=== PATIENT | male | born 1990 | race Caucasian/White ===

== ENCOUNTER 2017-10-01 08:49 | Emergency (ER) | payer BC ==
[2017-10-01] MEDS ORDERED: methylPREDNISolone Sodium Succinate 125 MG/2 ML SDV ONE (09:31)
[2017-10-01] MEDS ORDERED: Ketorolac 30 MG/ML SDV ONE (09:31)
[2017-10-01] MEDS ORDERED: Sodium Chloride 0.9% 1,000 ML ONE (09:31)
--- NOTE | 2017-10-01 16:37 | EDM.PDOC ---
ED HPI GENERAL MEDICAL PROBLEM - General Chief Complaint: ENT Problem Stated Complaint: SORE THROAT Time Seen by Provider: 10/01/17 12:12 Source of Information: Reports: Patient History Limitations: Reports: No Limitations - History of Present Illness INITIAL COMMENTS - FREE TEXT/NARRATIVE: The patient presents with a sore throat and edema. This started over the weekend. He has no fever but he has had chills. He is not allergic to anything. He feels like this is strep throat. He has had this before but now with a swollen uvula. He looked in the mirror and his uvula is swollen and there is redness and a white patch. He can still swallow. It gages him at times. He has no chest pain, cough, shortness of breath and abdominal pain. He has no nausea but he did vomit because his uvula gaged him. Onset: Gradual Duration: Day(s): Quality: Reports: Sharp Severity: Moderate Improves with: Reports: None Worsens with: Reports: None Associated Symptoms: Reports: No Other Symptoms Throat Pain Score (Numeric/FACES): 4 - Related Data Allergies Allergy/AdvReac Type Severity Reaction Status Date / Time No Known Allergies Allergy Verified 10/01/17 12:26 Home Meds: Home Meds Amoxicillin 1,000 mg PO BID #40 tab 10/01/17 [Rx] ED ROS ENT - Review of Systems Review Of Systems: See Below Constitutional: Reports: Chills HEENT: Reports: Throat Pain Respiratory: Reports: No Symptoms Cardiovascular: Reports: No Symptoms Endocrine: Reports: No Symptoms GI/Abdominal: Reports: No Symptoms : Reports: No Symptoms Musculoskeletal: Reports: No Symptoms ED EXAM, ENT - Physical Exam Exam: See Below Exam Limited By: No Limitations General Appearance: Alert, No Apparent Distress Ears: Normal External Exam Nose: Normal Inspection Mouth/Throat: Pharyngeal Erythema, Other (Uvula has edema, erythema and a white patch on it) Course - Vital Signs Last Recorded V/S: Last Vital Signs Temp 97.4 F 10/01/17 09:22 Pulse 72 10/01/17 09:22 Resp 18 10/01/17 09:22 BP 156/109 H 10/01/17 09:22 Pulse Ox 100 10/01/17 09:22 - Re-Assessments/Exams Free Text/Narrative Re-Assessment/Exam: 12/19/17 12:38 I ordered an IV NS 1L bolus, solu-medrol 125mg IV, toradol 30mg IV, and labs. His CBC looks good. His strep was negative and his mono was negative. He has a uvula infection and pharyngitis. I will get him on some amoxicillin. 10/01/17 12:47 He feels better. Departure - Departure Time of Disposition: 12:50 Disposition: Home, Self-Care 01 Condition: Good Clinical Impression: Uvulitis Pharyngitis Qualifiers: Pharyngitis/tonsillitis etiology: other specified organisms Qualified Code(s): J02.8 - Acute pharyngitis due to other specified organisms - Discharge Information Prescriptions: Amoxicillin 1,000 mg PO BID #40 tab Referrals: PCP,None [Primary Care Provider] - Rohit Frazier [Physician] - 1 Week Forms: ED Department Discharge Additional Instructions: Take the amoxicillin 2 times per day for 10 days. Drink ice water and try gargling with salt water a couple times per day. Eat soft foods and drink mild shakes or something soft like that for a couple days. Please return if you are worse or follow up with Dr Barksdale.
== END 2017-10-01 13:05 | disposition home or self-care (01) ==
LOC: JD.ED 08:49
DX: K12.2 Cellulitis and abscess of mouth (principal); J02.8 Acute pharyngitis due to other specified organisms; I10 Essential (primary) hypertension
CPT/HCPCS: 36415; 80053; 85025; 86308; 87081; 87430; 96361; 96374; 96375; 99282; 99283; J1885; J2930; J7040

== ENCOUNTER 2017-10-01 20:16 | Emergency (ER) | payer BC ==
[~2017-10-01 20:16] MED LIST: Ketorolac 30 MG/ML SDV ONE; methylPREDNISolone Sodium Succinate 125 MG/2 ML SDV ONE
--- NOTE | 2017-10-01 21:17 | EDM.PDOC ---
ED HPI GENERAL MEDICAL PROBLEM - General Chief Complaint: ENT Problem Stated Complaint: THROAT ISSUES Time Seen by Provider: 10/01/17 20:52 Source of Information: Reports: Patient History Limitations: Reports: No Limitations - History of Present Illness INITIAL COMMENTS - FREE TEXT/NARRATIVE: Patient is a 26-year-old male who presents ED complaining of his uvula swollen and getting him. Patient was evaluated earlier today with a diagnosis of uvulitis and pharyngitis with negative strep screen placed on amoxicillin. He received a dose of Solu-Medrol 125 mg while in the ED. He took 2 doses of amoxicillin today. States after the admission to the ED he felt better. This afternoon started noticing worsening symptoms. Prior to coming arrival he states the uvula felt like it was stretched out. Upon examination the ED the uvula had shrunk per patient. He has increased anxiety with gagging. There's been no vomiting, fever, difficulty swallowing, controlling his secretions, shortness of breath, nausea, or any additional commands. - Related Data Allergies Allergy/AdvReac Type Severity Reaction Status Date / Time No Known Allergies Allergy Verified 10/01/17 20:28 Home Meds: Home Meds Amoxicillin 1,000 mg PO BID #40 tab 10/01/17 [Rx] Prednisone [IJD: predniSONE] 40 mg PO WITHBREAKFAST #10 tab 10/01/17 [Rx] Past Medical History - Past Health History Medical/Surgical History: Denies Medical/Surgical History Cardiovascular History: Reports: Hypertension Other Cardiovascular History: boarderline Social & Family History - Family History Family Medical History: Noncontributory - Tobacco Use Smoking Status *Q: Never Smoker - Caffeine Use Caffeine Use: Reports: Coffee - Recreational Drug Use Recreational Drug Use: No ED ROS ENT - Review of Systems Review Of Systems: ROS reveals no pertinent complaints other than HPI. ED EXAM, ENT - Physical Exam Exam: See Below Exam Limited By: No Limitations General Appearance: Alert, WD/WN, Anxious Ears: Hearing Grossly Normal Nose: Normal Inspection Mouth/Throat: Other (Slight redness noted to the uvula with swelling present. Something white patches present to the uvula. Minimal tonsillar swelling with erythema noted. No exudates noted. No peritonsillar abscess. No drooling present. No trismus present.). No: Dry Mucous Membrane Head: Atraumatic, Normocephalic Neck: Normal Inspection, Supple, Non-Tender. No: Lymphadenopathy (L), Lymphadenopathy (R) Respiratory/Chest: No Respiratory Distress, Lungs Clear, Normal Breath Sounds Neurological: Alert, Oriented, CN II-XII Intact, Normal Cognition, No Motor/ Sensory Deficits Psychiatric: Normal Affect, Normal Mood Skin: Warm, Dry, Intact, Normal Color, No Rash Course - Vital Signs Last Recorded V/S: Last Vital Signs Temp 98.7 F 10/01/17 20:28 Pulse 87 10/01/17 20:28 Resp 16 10/01/17 20:28 BP 169/107 H 10/01/17 20:28 Pulse Ox 100 10/01/17 20:28 - Re-Assessments/Exams Free Text/Narrative Re-Assessment/Exam: Review previous ED visit. Examination did not reveal any concerning findings. I believe patient's symptoms are worsened by his anxiety. He will remain on amoxicillin as prescribed. Will also order a short course of oral prednisone in addition. He was instructed utilize Chloraseptic spray as needed discharge instructions as documented. Departure - Departure Time of Disposition: 21:14 Disposition: Home, Self-Care 01 Condition: Good Clinical Impression: Uvulitis Pharyngitis Qualifiers: Pharyngitis/tonsillitis etiology: other specified organisms Qualified Code(s): J02.8 - Acute pharyngitis due to other specified organisms - Discharge Information Prescriptions: Prednisone [IJD: predniSONE] 40 mg PO WITHBREAKFAST #10 tab Referrals: PCP,None [Primary Care Provider] - Additional Instructions: As discussed will have you continue taking the amoxicillin as prescribed. Gargle with saltwater throughout the course today as needed. Push the fluids. Stick with a soft diet until symptoms resolve. Utilize Tylenol and ibuprofen in alternating fashion for pain. Utilize Chloraseptic as needed throughout the course today to numb the posterior pharynx. Also will have you take prednisone 40 mg every a.m. the next 5 days. Take with food. Follow-up with your primary care provider this following week for reevaluation. Return to the ED if he developed any new or worsening symptoms.
== END 2017-10-01 21:22 | disposition home or self-care (01) ==
LOC: JD.ED 20:16
DX: K12.2 Cellulitis and abscess of mouth (principal); J02.8 Acute pharyngitis due to other specified organisms; I10 Essential (primary) hypertension
CPT/HCPCS: 99282; J1885; J2930; J7040; 99283

== ENCOUNTER 2017-12-10 16:37 | Emergency (ER) | payer BC ==
[2017-12-10] MEDS ORDERED: LORazepam 2 MG/ML MDV IVPUSH ONE (17:13)
--- NOTE | 2017-12-10 18:32 | EDM.PDOC ---
ED HPI GENERAL MEDICAL PROBLEM - General Chief Complaint: Chest Pain Stated Complaint: CHEST PAIN Time Seen by Provider: 12/10/17 16:42 Source of Information: Reports: Patient History Limitations: Reports: No Limitations - History of Present Illness INITIAL COMMENTS - FREE TEXT/NARRATIVE: The patient presents with chest pain. This started at about 1530 while he was at work. He got anxious and went home and laid down but that made it worse. He was short of breath with it. He is under lots of stress lately. He has been drinking 3 to 5 nights per week. He drinks multiple drinks at a time. He has no fever, chills, cough, congestion, runny nose, abdominal pain, nausea or vomiting. He does admit to drinking tonight. He is shaking when I am examining him. Onset: Gradual Duration: Hour(s): Location: Reports: Chest Quality: Reports: Sharp Severity: Moderate Improves with: Reports: None Worsens with: Reports: None Associated Symptoms: Reports: Chest Pain. Denies: Cough, Fever/Chills, Headaches, Nausea/Vomiting, Shortness of Breath lower mid sternal Pain Score (Numeric/FACES): 4 - Related Data Allergies Allergy/AdvReac Type Severity Reaction Status Date / Time No Known Allergies Allergy Verified 12/10/17 16:45 Home Meds: Home Meds LORazepam [Ativan] 1 mg PO TID PRN #10 tablet 12/10/17 [Rx] Past Medical History - Past Health History Medical/Surgical History: Denies Medical/Surgical History Cardiovascular History: Reports: Hypertension Other Cardiovascular History: borderline Psychiatric History: Reports: Anxiety Social & Family History - Family History Family Medical History: Noncontributory - Tobacco Use Smoking Status *Q: Former Smoker Used Tobacco, but Quit: No - Caffeine Use Caffeine Use: Reports: Soda - Recreational Drug Use Recreational Drug Use: No Recreational Drug Type: Reports: Marijuana/Hashish Recreational Drug Use Frequency: Socially ED ROS GENERAL - Review of Systems Review Of Systems: See Below Constitutional: Reports: No Symptoms HEENT: Reports: No Symptoms Respiratory: Reports: No Symptoms Cardiovascular: Reports: Chest Pain Endocrine: Reports: No Symptoms GI/Abdominal: Reports: No Symptoms : Reports: No Symptoms Musculoskeletal: Reports: No Symptoms ED EXAM, GENERAL - Physical Exam Exam: See Below Exam Limited By: No Limitations General Appearance: Alert, No Apparent Distress Ears: Normal External Exam Nose: Normal Inspection Head: Atraumatic, Normocephalic Neck: Normal Inspection Respiratory/Chest: No Respiratory Distress, Lungs Clear, Normal Breath Sounds Cardiovascular: Regular Rate, Rhythm, No Edema, No Murmur GI/Abdominal: Soft, Non-Tender, No Organomegaly, No Mass Extremities: Normal Inspection Neurological: Alert, Oriented, No Motor/Sensory Deficits, Other (He is anxious and is shaking) EKG INTERPRETATION EKG Date: 12/10/17 Time: 16:41 Rhythm: NSR Rate (Beats/Min): 81 [place]: Normal P-Wave: Present QRS: Normal ST-T: Elevated (Early repol) QT: Normal Course - Vital Signs Last Recorded V/S: Last Vital Signs Temp 97.8 F 12/10/17 16:37 Pulse 91 12/10/17 16:37 Resp 18 12/10/17 16:37 BP 188/109 H 12/10/17 16:37 Pulse Ox 100 12/10/17 16:37 - Orders/Labs/Meds Orders: Active Orders 24 hr Category Date Time Status EKG 12 Lead [EKG Documentation Completion] [RC] STAT Care 12/10/17 16:44 Active Chest 1V Frontal [CR] Stat Exams 12/10/17 17:12 Taken Labs: Laboratory Tests 12/10/17 12/10/17 Range/Units 17:30 17:30 WBC 10.56 H (4.23-9.07) K/mm3 RBC 5.09 (4.63-6.08) M/mm3 Hgb 16.0 (13.7-17.5) gm/L Hct 48.0 (40.1-51.0) % MCV 94.3 H (79.0-92.2) fl MCH 31.4 (25.7-32.2) pg MCHC 33.3 (32.2-35.5) g/dl RDW Std Deviation 46.8 H (35.1-43.9) fL Plt Count 277 (163-337) K/mm3 MPV 9.4 (9.4-12.3) fl Neut % (Auto) 78.0 H (34.0-67.9) % Lymph % (Auto) 11.7 L (21.8-53.1) % [place] % (Auto) 8.9 (5.3-12.2) % Eos % (Auto) 0.6 L (0.8-7.0) Baso % (Auto) 0.3 (0.1-1.2) % Neut # (Auto) 8.24 H (1.78-5.38) K/mm3 Lymph # (Auto) 1.24 L (1.32-3.57) K/mm3 [place] # (Auto) 0.94 H (0.30-0.82) K/mm3 Eos # (Auto) 0.06 (0.04-0.54) K/mm3 Baso # (Auto) 0.03 (0.01-0.08) K/mm3 Sodium 140 (136-145) mEq/L Potassium 3.8 (3.5-5.1) mEq/L Chloride 101 (98-107) mEq/L Carbon Dioxide 22 (21-32) mEq/L Anion Gap 20.8 H (5-15) BUN 8 (7-18) mg/dL Creatinine 0.8 (0.7-1.3) mg/dL Est Cr Clr Drug Dosing 162.84 mL/min Estimated GFR (MDRD) > 60 (>60) mL/min BUN/Creatinine Ratio 10.0 L (14-18) Glucose 95 (74-106) mg/dL Calcium 9.3 (8.5-10.1) mg/dL Total Bilirubin 0.4 (0.2-1.0) mg/dL AST 58 H (15-37) U/L ALT 96 H (16-63) U/L Alkaline Phosphatase 92 (46-116) U/L Troponin I < 0.017 (0.00-0.056) ng/mL Total Protein 8.5 H (6.4-8.2) g/dl Albumin 4.4 (3.4-5.0) g/dl Globulin 4.1 gm/dL Albumin/Globulin Ratio 1.1 (1-2) Ethyl Alcohol 0.11 (0.00) gm% Meds: Medications Discontinued Medications Generic Name Dose Route Start Last Admin Trade Name Freq PRN Reason Stop Dose Admin Lorazepam 1 mg 12/10/17 17:13 12/10/17 17:33 Ativan IVPUSH 12/10/17 17:14 1 mg ONETIME ONE Administration - Re-Assessments/Exams Free Text/Narrative Re-Assessment/Exam: 12/10/17 18:32 I ordered an IV saline lock, EKG, CXR, labs and ativan 1mg IV. His EKG shows a NSR with early repol but no acute changes. His WBC was elevated at 10.56. His anion gap was elevated at 20.8. His AST was elevated at 58. His ALT was elevated at 96. His troponin was negative. His ETOH was 0.11. He feels much better. 12/10/17 18:40 He asked about getting checked for sleep apnea. He is worried he may have it. I will refer him to a provider in our clinic to set that up. Departure - Departure Time of Disposition: 18:40 Disposition: Home, Self-Care 01 Condition: Good Clinical Impression: Atypical chest pain, Anxiety Alcohol intoxication Qualifiers: Complication of substance-induced condition: uncomplicated Qualified Code(s): F10.920 - Alcohol use, unspecified with intoxication, uncomplicated Prescriptions: LORazepam [Ativan] 1 mg PO TID PRN #10 tablet PRN Reason: Anxiety Referrals: PCP,None [Primary Care Provider] - Geri Wood PA [Physician [employer]] - 1 Week Additional Instructions: Drink plenty of fluids. Try to stop drinking. Take the ativan as needed for anxiety or any shaking from stopping drinking. Please return if you are worse. - My Orders Last 24 Hours: My Active Orders 12/10/17 16:44 EKG 12 Lead [EKG Documentation Completion] [RC] STAT - Assessment/Plan Last 24 Hours: My Active Orders 12/10/17 16:44 EKG 12 Lead [EKG Documentation Completion] [RC] STAT
--- NOTE | 2017-12-11 08:49 | CR ---
Chest: Frontal view of the chest was obtained. Comparison: No prior chest x-ray. Heart size and mediastinum are normal. Lungs are clear. Bony structures are grossly intact. Impression: 1. Nothing acute is identified on frontal chest x-ray. Diagnostic code #1
== END 2017-12-10 18:55 | disposition home or self-care (01) ==
LOC: JD.ED 16:37
DX: R07.89 Other chest pain (principal); F41.9 Anxiety disorder, unspecified; F10.920 Alcohol use, unspecified with intoxication, uncomplicated; I10 Essential (primary) hypertension; Z87.891 Personal history of nicotine dependence
CPT/HCPCS: 36415; 71045; 80053; 84484; 85025; 93005; 96374; 99285; G0480; J2060; 93010; 99284-25

== ENCOUNTER 2021-03-14 11:49 | Emergency (ER) | payer BC ==
[2021-03-14] MEDS ORDERED: Sodium Chloride 0.9% 10 ML Syringe FLUSH PRN (12:16)
[2021-03-14] MEDS ORDERED: Sodium Chloride 0.9% 1,000 ML IV ONE (12:26)
[2021-03-14] MEDS ORDERED: Ondansetron 4 MG/2 ML SDV IVPUSH ONE (12:26)
[2021-03-14 13:05] LABS: ACETAMINOPHEN 0 ug/mL (10-30)
--- NOTE | 2021-03-14 13:58 | EDM.PDOCBH ---
ED HPI GENERAL MEDICAL PROBLEM - General Chief Complaint: Drug or Alcohol Abuse Stated Complaint: DETOXING FROM ALCOHOL, CHEST PAIN Time Seen by Provider: 03/14/21 12:15 Source of Information: Reports: Patient History Limitations: Reports: No Limitations - History of Present Illness INITIAL COMMENTS - FREE TEXT/NARRATIVE: 30-year-old male presents to the emergency department with complaints of alcohol detox. He states he has been drinking daily, 1 L a day of whiskey, for the past 4 weeks. He states his last drink was last evening around 1900 and today he woke with anxiety, diarrhea, tremors. He states he went through alcohol treatment approximately a year ago. He denies having any type of seizures when he detoxes from alcohol. He denies smoking or any illicit drug use. I asked the patient if he is wanting inpatient treatment for alcohol and he states that he has a strong support system and he is going to get back into . I also offered him treatment with [facility] and he then told me that he will be going to [facility] and will make arrangements. I have ordered for the patient to receive a liter of normal saline and 4 mg of Zofran IV as he is likely dehydrated and states he is feeling slightly nauseated. - Related Data Allergies Allergy/AdvReac Type Severity Reaction Status Date / Time No Known Allergies Allergy Verified 03/14/21 12:04 Home Meds: Home Meds . [No Known Home Meds] 03/14/21 [History] Past Medical History - Past Health History Medical/Surgical History: Denies Medical/Surgical History HEENT History: Reports: Impaired Vision Other HEENT History: wears eyeglasses. Cardiovascular History: Reports: Hypertension Other Cardiovascular History: borderline Gastrointestinal History: Reports: Gastritis Psychiatric History: Reports: Addiction, Anxiety - Infectious Disease History Infectious Disease History: Reports: Chicken Pox Social & Family History - Family History Family Medical History: No Pertinent Family History - Tobacco Use Tobacco Use Status *Q: Never Tobacco User Second Hand Smoke Exposure: No - Caffeine Use Caffeine Use: Reports: Soda - Alcohol Use Days Per Week of Alcohol Use: 7 Number of Drinks Per Day: 15 Total Drinks Per Week: 105 - Recreational Drug Use Recreational Drug Use: No ED ROS GENERAL - Review of Systems Review Of Systems: Comprehensive ROS is negative, except as noted in HPI. ED EXAM, BEHAVIORAL HEALTH - Physical Exam Exam: See Below Exam Limited By: No Limitations General Appearance: Alert, WD/WN, No Apparent Distress Ears: Normal External Exam, Hearing Grossly Normal Nose: Normal Inspection Throat/Mouth: Normal Inspection, Normal Lips, Normal Voice, No Airway Compromise Head: Atraumatic Neck: Normal Inspection, Supple Respiratory/Chest: No Respiratory Distress, Lungs Clear, Normal Breath Sounds, No Accessory Muscle Use, Chest Non-Tender Cardiovascular: Normal Peripheral Pulses, Regular Rate, Rhythm, No Edema, No Murmur GI/Abdominal: Normal Bowel Sounds, Soft, Non-Tender, No Distention (Male) Exam: Deferred Rectal (Males) Exam: Deferred Back Exam: Normal Inspection Extremities: Normal Inspection Neurological: Alert, Normal Mood/Affect, Normal Cognition, Oriented x 3 Psychiatric: Alert, Normal Affect, Normal Cognition, Normal Mood, Oriented Skin Exam: Warm, Dry, Intact, Normal color, No rash #1 Interpretation EKG Date: 03/14/21 Time: 12:32 Rhythm: NSR Rate (Beats/Min): 49 [employer]: Normal P-Wave: Present QRS: Normal ST-T: Normal QT: Normal Comparison: NA - No Prior EKG EKG Interpretation Comments: Per Dr. Harrison interpretation: Sinus bradycardia at 50 bpm; diffuse early repolarization pattern; symmetrical slightly peaked T waves; T wave flattening aVL; borderline criteria for LVH COURSE, BEHAVIORAL HEALTH COMP - Course Vital Signs: Last Vital Signs Temp 97.0 F 03/14/21 13:15 Pulse 68 03/14/21 13:15 Resp 20 03/14/21 13:15 BP 133/79 03/14/21 13:15 Pulse Ox 100 03/14/21 13:15 Orders, Labs, Meds: Active Orders 24 hr Category Date Time Status Saline Lock Insert [OM.PC] Stat Oth 03/14/21 12:16 Ordered Laboratory Tests 03/14/21 03/14/21 03/14/21 Range/Units 12:15 12:15 12:15 WBC 8.98 (4.23-9.07) K/mm3 RBC 4.67 (4.63-6.08) M/mm3 Hgb 14.4 D (13.7-17.5) gm/dl Hct 43.3 (40.1-51.0) % MCV 92.7 H (79.0-92.2) fl MCH 30.8 (25.7-32.2) pg MCHC 33.3 (32.2-35.5) g/dl RDW Std Deviation 47.1 H (35.1-43.9) fL Plt Count 236 (163-337) K/mm3 MPV 9.4 (9.4-12.3) fl Neut % (Auto) 54.0 (34.0-67.9) % Lymph % (Auto) 34.7 (21.8-53.1) % [place] % (Auto) 10.4 (5.3-12.2) % Eos % (Auto) 0.3 L (0.8-7.0) Baso % (Auto) 0.4 (0.1-1.2) % Neut # (Auto) 4.84 (1.78-5.38) K/mm3 Lymph # (Auto) 3.12 (1.32-3.57) K/mm3 [place] # (Auto) 0.93 H (0.30-0.82) K/mm3 Eos # (Auto) 0.03 L (0.04-0.54) K/mm3 Baso # (Auto) 0.04 (0.01-0.08) K/mm3 Sodium 139 (136-145) mEq/L Potassium 3.8 (3.5-5.1) mEq/L Chloride 98 (98-107) mEq/L Carbon Dioxide 25 (21-32) mEq/L Anion Gap 19.8 H (5-15) BUN 7 (7-18) mg/dL Creatinine 0.9 (0.7-1.3) mg/dL Est Cr Clr Drug Dosing 140.83 mL/min Estimated GFR (MDRD) > 60 (>60) mL/min BUN/Creatinine Ratio 7.8 L (14-18) Glucose 90 (70-99) mg/dL Calcium 9.4 (8.5-10.1) mg/dL Magnesium 1.9 (1.8-2.4) mg/dL Total Bilirubin 1.1 H (0.2-1.0) mg/dL AST 147 H (15-37) U/L ALT 180 H (16-63) U/L Alkaline Phosphatase 77 (46-116) U/L Total Protein 7.9 (6.4-8.2) g/dl Albumin 4.5 (3.4-5.0) g/dl Globulin 3.4 gm/dL Albumin/Globulin Ratio 1.3 (1-2) TSH 3rd Generation 0.508 (0.358-3.74) uIU/mL Salicylates 0.3 L (2.8-20) mg/dL Acetaminophen 0 L (10-30) ug/mL Ethyl Alcohol (0.00) gm% 03/14/21 Range/Units 12:15 WBC (4.23-9.07) K/mm3 RBC (4.63-6.08) M/mm3 Hgb (13.7-17.5) gm/dl Hct (40.1-51.0) % MCV (79.0-92.2) fl MCH (25.7-32.2) pg MCHC (32.2-35.5) g/dl RDW Std Deviation (35.1-43.9) fL Plt Count (163-337) K/mm3 MPV (9.4-12.3) fl Neut % (Auto) (34.0-67.9) % Lymph % (Auto) (21.8-53.1) % [place] % (Auto) (5.3-12.2) % Eos % (Auto) (0.8-7.0) Baso % (Auto) (0.1-1.2) % Neut # (Auto) (1.78-5.38) K/mm3 Lymph # (Auto) (1.32-3.57) K/mm3 [place] # (Auto) (0.30-0.82) K/mm3 Eos # (Auto) (0.04-0.54) K/mm3 Baso # (Auto) (0.01-0.08) K/mm3 Sodium (136-145) mEq/L Potassium (3.5-5.1) mEq/L Chloride (98-107) mEq/L Carbon Dioxide (21-32) mEq/L Anion Gap (5-15) BUN (7-18) mg/dL Creatinine (0.7-1.3) mg/dL Est Cr Clr Drug Dosing mL/min Estimated GFR (MDRD) (>60) mL/min BUN/Creatinine Ratio (14-18) Glucose (70-99) mg/dL Calcium (8.5-10.1) mg/dL Magnesium (1.8-2.4) mg/dL Total Bilirubin (0.2-1.0) mg/dL AST (15-37) U/L ALT (16-63) U/L Alkaline Phosphatase (46-116) U/L Total Protein (6.4-8.2) g/dl Albumin (3.4-5.0) g/dl Globulin gm/dL Albumin/Globulin Ratio (1-2) TSH 3rd Generation (0.358-3.74) uIU/mL Salicylates (2.8-20) mg/dL Acetaminophen (10-30) ug/mL Ethyl Alcohol 0.06 (0.00) gm% Medications Discontinued Medications Generic Name Dose Route Start Last Admin Trade Name Tessa PRN Reason Stop Dose Admin Sodium Chloride 1,000 mls @ 999 mls/hr 03/14/21 12:26 03/14/21 12:35 Normal Saline IV 03/14/21 13:26 999 mls/hr ONETIME ONE Administration Ondansetron HCl 4 mg 03/14/21 12:26 03/14/21 12:33 Ondansetron 4 Mg/2 Ml Sdv IVPUSH 03/14/21 12:27 4 mg ONETIME ONE Administration Sodium Chloride 10 ml 03/14/21 12:16 03/14/21 12:15 Sodium Chloride 0.9% 10 Ml Syringe FLUSH 10 ml ASDIRECTED PRN Administration Keep Vein Open Re-Assessment/Re-Exam: The patient has received a liter of IV fluids and Zofran for his nausea. He states he is feeling 100% better and is requesting to go home. Patient will be discharged home. Departure - Departure Time of Disposition: 13:58 Disposition: Home, Self-Care 01 Condition: Fair Clinical Impression: Alcohol abuse - Discharge Information Instructions: Alcohol Use Disorder, Alcohol Abuse and Dependence Information, Adult, Finding Treatment for Addiction Referrals: PCP,None [Primary Care Provider] - Forms: ED Department Discharge Additional Instructions: You were seen in the emergency department today with complaints of detoxing from alcohol. Labs were completed which were essentially unremarkable. EKG was also completed. You received a liter of IV fluids and medication for nausea. After this you stated you felt 100% better. You stated that you do have treatment set up as an outpatient basis however if this falls through you can call [facility] at [phone] and they will assist you with finding treatment for your alcohol addiction. Sepsis Event Note (ED) - Evaluation Sepsis Screening Result: No Definite Risk - Focused Exam Vital Signs: Vital Signs Temp Pulse Resp BP Pulse Ox 03/14/21 13:15 97.0 F 68 20 133/79 100 03/14/21 11:50 96.7 F L 50 L 16 133/92 H 100 - My Orders Last 24 Hours: My Active Orders 03/14/21 12:16 Saline Lock Insert [OM.PC] Stat - Assessment/Plan Last 24 Hours: My Active Orders 03/14/21 12:16 Saline Lock Insert [OM.PC] Stat
== END 2021-03-14 14:05 | disposition home or self-care (01) ==
LOC: JD.ED 11:49
DX: F10.10 Alcohol abuse, uncomplicated (principal); I10 Essential (primary) hypertension; Y90.5 Blood alcohol level of 100-119 mg/100 ml
CPT/HCPCS: 36415; 80053; 80143; 80179; 80307; 83735; 84443; 85025; 93005; 96374; 99284; J2405; J7030; 93010; 99283

== ENCOUNTER 2021-09-26 09:06 | Emergency (ER) | payer BC | END 2021-09-26 10:34 | LOC: JD.ED 09:06 | DX: Z53.21 Procedure and treatment not carried out due to patient leaving prior to being seen by health care provider (principal) ==

== ENCOUNTER 2022-01-27 16:53 | Emergency (ER) | payer BC ==
[2022-01-27] MEDS ORDERED: Sodium Chloride 0.9% 1,000 ML IV STA ×2 (17:14→18:39)
[2022-01-27 18:17] LABS: ACETAMINOPHEN 0 ug/mL (10-30)
== END 2022-01-27 21:52 | disposition home or self-care (01) ==
LOC: JD.ED 16:53
DX: F10.129 Alcohol abuse with intoxication, unspecified (principal); I10 Essential (primary) hypertension; Y90.2 Blood alcohol level of 40-59 mg/100 ml
CPT/HCPCS: 36415; 80053; 80143; 80179; 80307; 84443; 85007; 85027; 93005; 99284; J7030

== ENCOUNTER 2023-03-13 06:56 | Emergency (ER) | payer BC ==
[2023-03-13] MEDS ORDERED: Sodium Chloride 0.9% 1,000 ML IV SCH ×2 (07:45)
[2023-03-13 08:58] LABS: HEMATOCRIT 44.6 % (40.1-51.0); MEAN CORPUSCULAR HEMOGLOBIN 30.4 pg (25.7-32.2); MEAN CORPUSCULAR HGB CONC 33.6 g/dl (32.2-35.5); MEAN CORPUSCULAR VOLUME 90.3 fl (79.0-92.2); MEAN PLATELET VOLUME 10.4 fl (9.4-12.3); RED BLOOD CELL COUNT 4.94 M/mm3 (4.63-6.08); WHITE BLOOD CELL COUNT,WBC 8.17 K/mm3 (4.23-9.07)
[2023-03-13 09:00] LABS: PLATELET COUNT,PLT 270 K/mm3 (163-337)
[2023-03-13 09:17] LABS: INR 0.96; PROTHROMBIN TIME 10.3 SECONDS (9.7-12.0)
[2023-03-13 09:24] LABS: A/G RATIO 1.2 (1-2); ALBUMIN 4.3 g/dl (3.4-5.0); BILIRUBIN TOTAL 0.4 mg/dL (0.2-1.0); CALCIUM 8.9 mg/dL (8.5-10.1); CREATININE 0.9 mg/dL (0.7-1.3); EST CRCL DRUG DOSING (CG) 138.23 mL/min; MAGNESIUM 2.1 mg/dL (1.8-2.4); PROTEIN TOTAL,TP 7.9 g/dl (6.4-8.2)
[2023-03-13 09:38] LABS: PTT,PARTIAL THROMBOPLSTIN TIME 27.9 SECONDS (21.7-31.4)
[2023-03-13 09:45] LABS: D-DIMER QUANTITATIVE 0.6 mg/L (0.19-0.50)
[2023-03-13 10:06] LABS: BAND PERCENT MAN 0 % (0-10); BASOPHILS PERCENT MAN 0 (0.2-1.2); EOSINOPHILS PERCENT MAN 2 % (0.8-7.0); LYMPHOCYTES % ATYPICAL MANUAL 0 %; LYMPHOCYTES PERCENT MAN 30 % (20-40); MONOCYTES PERCENT MAN 3 % (2-10)
[2023-03-13 10:07] LABS: PLATELET COUNT ESTIMATE ADEQUATE
== END 2023-03-13 11:26 | disposition home or self-care (01) ==
LOC: JD.ED 06:56
DX: R07.89 Other chest pain (principal); R79.1 Abnormal coagulation profile; R79.89 Other specified abnormal findings of blood chemistry; T43.615A Adverse effect of caffeine, initial encounter; F17.210 Nicotine dependence, cigarettes, uncomplicated; I10 Essential (primary) hypertension
CPT/HCPCS: 36415; 71045; 80053; 82550; 83735; 84484; 85007; 85027; 85379; 85610; 85730; 93005; 96360; 99285; J7030; 93010; 99284

== ENCOUNTER 2025-04-26 22:31 | Emergency (ER) | payer BC ==
[2025-04-27] MEDS ORDERED: Sodium Chloride 0.9% 10 ML Syringe FLUSH PRN (00:21)
[2025-04-27 00:30] LABS: BASOPHILS ABSOLUTE AUTO 0.1 K/mm3 (0.0-0.2); BASOPHILS PERCENT AUTO 1.3 % (0.0-1.0); EOSINOPHILS ABSOLUTE AUTO 0.1 K/mm3 (0.0-0.4); EOSINOPHILS PERCENT AUTO 1.3 % (0.0-6.0); IMMATURE GRAN ABSOLUTE AUTO 0.02 K/mm3 (0.00-0.05); IMMATURE GRAN PERCENT AUTO 0.4 % (0.0-0.4); LYMPHOCYTES ABSOLUTE AUTO 2.0 K/mm3 (1.0-4.8); LYMPHOCYTES PERCENT AUTO 35.9 % (24.0-44.0); MEAN PLATELET VOLUME 9.5 fl (9.4-12.4); MONOCYTES ABSOLUTE AUTO 1.0 K/mm3 (0.0-0.8); MONOCYTES PERCENT AUTO 17.8 % (0.0-8.0); NEUTROPHILS ABSOLUTE AUTO 2.4 K/mm3 (1.8-7.7); NEUTROPHILS PERCENT AUTO 43.3 % (41.0-71.0); NRBC ABSOLUTE 0.00 (0.00-0.02); NRBC PERCENT 0.0 % (0.0-0.2); PLATELET COUNT,PLT 184 K/mm3 (150-400); RED BLOOD CELL COUNT 4.87 M/mm3 (4.52-5.90); WHITE BLOOD CELL COUNT,WBC 5.52 K/mm3 (3.9-11.3)
[2025-04-27] MEDS: hydrALAZINE 20 MG/ML SDV IVPUSH ONE (00:32)
[2025-04-27 00:40] LABS: A/G RATIO 1.2 (1-2); ALANINE AMINOTRANSFERASE,ALT 97.0 U/L (16-63); ASPARTATE AMNIOTRANSFERASE,AST 53.0 U/L (15-37); BILIRUBIN TOTAL 0.8 mg/dL (0.2-1.0); BLOOD UREA NITROGEN,BUN 5.0 mg/dL (7-18); CARBON DIOXIDE,CO2 28.0 mEq/L (21-32); CHLORIDE,CL 97.0 mEq/L (98-107); CREATINE KINASE,CK 523.0 U/L (39-308); CREATININE 0.8 mg/dL (0.7-1.3); EST CRCL DRUG DOSING (CG) 152.57 mL/min; ESTIMATED GFR 118.0 mL/min (>60); ETHANOL BLOOD MEDICAL 0.25 gm% (0.00); GLUCOSE RANDOM 131.0 mg/dL (70-99); POTASSIUM,K 3.8 mEq/L (3.5-5.1); PROTEIN TOTAL,TP 8.3 g/dl (6.4-8.2); SODIUM,NA 137.0 mEq/L (136-145)
[2025-04-27 00:44] LABS: APPEARANCE,URINE CLEAR (Clear); GLUCOSE,URINE NEGATIVE (Negative); OCCULT BLOOD,URINE NEGATIVE (Negative)
[2025-04-27 00:53] LABS: BUPRENORPHINE SCREEN,URINE NEGATIVE (CUTOFF=10); METHADONE SCREEN, URINE NEGATIVE (CUT0FF=200); METHAMPHETAMINES SCREEN, URINE NEGATIVE (CUTOFF=500); OXYCODONE SCREEN,URINE NEGATIVE (CUT0FF=100); THC SCREEN,URINE 20 NG/ML NEGATIVE (CUTOFF=50)
[2025-04-27 01:04] LABS: AMPHETAMINES SCREEN, URINE NEGATIVE (CUTOFF=500)
[2025-04-27 01:57] LABS: EPITHELIAL CELLS,URINE 0-5 /hpf (0-5)
== END 2025-04-27 01:55 | disposition home or self-care (01) ==
LOC: JD.ED 22:31
DX: F14.90 Cocaine use, unspecified, uncomplicated (principal); F41.9 Anxiety disorder, unspecified; I10 Essential (primary) hypertension; F17.200 Nicotine dependence, unspecified, uncomplicated
CPT/HCPCS: 36415; 80053; 80306; 80307; 81001; 82550; 83735; 85025; 93005; 96374; 99285; J0360; 93010; 99284

== ENCOUNTER 2025-06-06 11:28 | Emergency (ER) | payer BC | END 2025-06-06 12:50 | disposition home or self-care (01) | LOC: JD.ED 11:28 | DX: S42.301A Unspecified fracture of shaft of humerus, right arm, initial encounter for closed fracture (principal); I10 Essential (primary) hypertension; X58.XXXA Exposure to other specified factors, initial encounter | CPT/HCPCS: 29125; 99283; 99283-25 ==